=== PATIENT | male | born 1970 ===

== ENCOUNTER 2022-06-19 08:31 | Outpatient (CLI) | payer MEDICARE, OTHER, SELFPAY ==
[2022-06-19 15:06] LABS: Albumin* 4.7 g/dL (3.3-5.0); Chloride* 108 mmol/L (96-114); Sodium* 141 mmol/L (135-149)
[2022-06-19 15:07] LABS: Potassium* 4.8 mmol/L (3.6-5.1)
[2022-06-19 15:08] LABS: Carbon Dioxide* 27 mmol/L (20-32); Cholesterol* 237 mg/dL (90-199); Creatinine* 1.5 mg/dL (0.5-1.5); Estimated Glomerular Filt Rate 56 ml/min
[2022-06-19 15:09] LABS: Alanine Aminotransferase* 18 U/L (4-50); Alkaline Phosphatase* 62 U/L (40-150); Aspartate Amino Transferase* 24 U/L (12-35); Bilirubin Total* 0.8 mg/dL (0.1-1.5); Blood Urea Nitrogen* 17 mg/dL (7-30); Calcium* 10.6 mg/dL (8.4-10.6); Glucose* 101 mg/dL (60-115); HDL Cholesterol* 47 mg/dL (>=40); LDL Cholesterol Calculated 150 mg/dL (<100); Total Protein* 7.3 g/dL (6.0-8.3); Triglycerides* 198 mg/dL (40-149)
[2022-06-19 15:41] LABS: PSA Screen* 0.97 ng/mL (0.10-4.00)
== END 2022-06-19 08:32 | disposition home or self-care (01) ==
PROVIDERS: PCP Family Medicine; Visit Provider Family Medicine
DX: Z00.00 Encounter for general adult medical examination without abnormal findings (principal); I15.1 Hypertension secondary to other renal disorders; N25.81 Secondary hyperparathyroidism of renal origin; Z13.6 Encounter for screening for cardiovascular disorders; Z12.5 Encounter for screening for malignant neoplasm of prostate; Z94.0 Kidney transplant status
CPT/HCPCS: 80053; 80061; 84153